=== PATIENT | female | born 1995 | race Caucasian/White ===

== ENCOUNTER 2016-10-23 13:58 | Emergency (ER) | payer OTHER ==
[2016-10-23 14:14] VITALS: BP 127/90; PULSE 98; TEMP 97.6; BMI 32.8
--- NOTE | 2016-10-23 16:27 | PDOC ---
History of Present Illness - General Chief Complaint: Allergic Reaction Stated Complaint: ALLERGIC REACTION Time Seen by Provider: 10/23/16 14:58 History Source: Patient Exam Limitations: No Limitations - History of Present Illness Initial Comments: 10/23/16 16:21 CC SORE THROAT, AND NASAL CONGESION Timing/Duration: reports: week Severity: reports: mild Possible Cause: Yes: chronic episodes. No: allergen exposure Associated Symptoms: reports: nasal congestion, nasal drainage, sore throat. denies: denies symptoms, cough, dizziness, facial pain, fever/chills, wheezing Past History - Past Medical History Allergies/Adverse Reactions: Allergies Allergy/AdvReac Type Severity Reaction Status Date / Time diphenhydramine Allergy Intermediate Verified 10/23/16 14:10 [Diphenhydramine] Home Medications: Ambulatory Orders No Home Medications 0 dose .ROUTE UTDICT 09/22/12 Asthma: Yes Suicide Attempt (Hx): No Other medical history: 12 WEEKS - Immunization History Immunization Up to Date: Yes - Psycho/Social/Smoking Cessation Hx Anxiety: Yes Suicidal Ideation: No Smoking Status: No Smoking History: Never smoked Number of Cigarettes Smoked Daily: 0 Drug/Substance Use Hx: No Substance Use Type: None Review of Systems - Review of Systems Constitutional: No: Chills, Fever, Malaise HEENTM: Yes: Nose Pain, Nose Congestion. No: Throat Pain Respiratory: Yes: Symptoms reported. No: Cough, Stridor, Wheezing Cardiac (ROS): No: Symptoms Reported ABD/GI: No: Symptoms Reported : No: Symptoms Reported Musculoskeletal: No: Symptoms Reported Integumentary: No: Symptoms Reported, Lumps Neurological: No: Symptoms reported *Physical Exam - Vital Signs Last Vital Signs Temp Pulse Resp BP Pulse Ox 97.6 F 98 H 19 127/90 97 10/23/16 14:10 10/23/16 14:10 10/23/16 14:10 10/23/16 14:10 10/23/16 14:10 - Physical Exam General Appearance: Yes: Appropriately Dressed HEENT: positive: Nasal Congestion, Rhinorrhea. negative: TMs Normal, Pharynx Normal, TM Bulging, TM Dull, TM Erythema Neck: positive: Supple, Lymphadenopathy (R), Lymphadenopathy (L). negative: Tender, Rigid Respiratory/Chest: positive: Chest Tender, Lungs Clear. negative: Rhonchi, Stridor, Wheezing ED Treatment Course - ADDITIONAL ORDERS Additional order review: 10/23/16 15:30 Group A Strep Rapid Antigen - Final Throat Medical Decision Making - Medical Decision Making 10/23/16 16:23 STREP= NEGATIVE; WILL SUGGEST CLARITIN 10MG DAILY WHICH IS SAVE DURING *DC/Admit/Observation/Transfer Diagnosis at time of Disposition: Allergic rhinitis Qualifiers: Allergic rhinitis seasonality: unspecified seasonality Allergic rhinitis trigger: unspecified Qualified Code(s): J30.9 - Allergic rhinitis, unspecified - Discharge Dispostion Disposition: HOME Condition at time of disposition: Stable Admit: No - Patient Instructions Additional Instructions: LOTS OF FLUIDS; GARGLE; CLARITIN NOT JANET; SEE LOCAL MD NEXT WEEK - Post Discharge Activity Work/School Note: Back to Work
== END 2016-10-23 16:37 | disposition home or self-care (01) ==
LOC: JERFT 13:58
DX: B30.9 Viral conjunctivitis, unspecified (principal); Z3A.12 12 weeks gestation of pregnancy
CPT/HCPCS: 87070; 87077; 87430; 99281-25

== ENCOUNTER 2017-03-17 18:49 | Emergency (ER) | payer OTHER ==
[2017-03-17 19:05] VITALS: BMI 34.0
--- NOTE | 2017-03-17 19:55 | PDOC ---
Attending Attestation - Resident Resident Name: Pau Wu - ED Attending Attestation I have performed the following: I have examined & evaluated the patient, The case was reviewed & discussed with the resident, I agree w/resident's findings & plan, Exceptions are as noted - HPI HPI: 03/17/17 20:00 Pt is 32 weeks c/o back pain. Pt denies dysuria. States she was evaluated at another hospital and told everything was fine. Pt denies any abdominal cramping or vaginal bleeding. Denies trauma - Physicial Exam PE: 03/17/17 19:59 *Physical Exam General Appearance: Yes: Appropriately Dressed. No: Apparent Distress, Intoxicated HEENT: positive: EOMI, YAQUELIN, Normal ENT Inspection, Normal Voice, TMs Normal, Pharynx Normal. negative: Pale Conjunctivae, Photophobia, Scleral Icterus (R), Scleral Icterus (L) Neck: positive: Trachea midline, Normal Thyroid, Supple. negative: Tender, Rigid, Carotid bruit, Stridor, Lymphadenopathy (R), Lymphadenopathy (L), Thyromegaly Respiratory/Chest: positive: Lungs Clear, Normal Breath Sounds. negative: Chest Tender, Respiratory Distress, Accessory Muscle Use, Labored Respiration, RES, Crackles, Rales, Rhonchi, Stridor, Wheezing, Dullness Cardiovascular: positive: Regular Rhythm, Regular Rate, S1, S2. negative: Edema , JVD, Murmur, Bradycardia, Tachycardia Vascular Pulses: Dorsalis-Pedis (R): 2+, Doralis-Pedis (L): 2+ Gastrointestinal/Abdominal: positive: Normal Bowel Sounds, gravid Soft. negative: Tender, O, Pulsatile Mass, Increased Bowel Sounds, Decreased BS, Distended, Guarding, Rebound, Hernia, Hepatomegaly, Spleenomegaly Lymphatic: negative: Adenopathy, Tenderness Musculoskeletal: positive: Normal Inspection. negative: CVA Tenderness, Decreased Range of Motion Extremity: positive: Normal Capillary Refill, Normal Inspection, Normal Range of Motion, Pelvis Stable. negative: Tender, Pedal Edema, Swelling, Erythema Integumentary: positive: Normal Color, Dry, Warm. negative: Cyanotic, Erythema , Jaundice, Rash Neurologic: positive: business intelligence manager II-XII NML intact, Fully Oriented, Alert, Normal Mood/ Affect, Motor Strength 5/5. negative: EOM Palsy, Facial Droop, Sensory Deficit
--- NOTE | 2017-03-17 20:04 | PDOC ---
History of Present Illness - General Chief Complaint: Pain Stated Complaint: BODY PAIN/32 WKS Time Seen by Provider: 03/17/17 19:28 History Source: Patient Exam Limitations: No Limitations - History of Present Illness Initial Comments: 03/17/17 20:20 CC: 3 day h/o Back Pain Patient is a 21 y.o. female at 32 weeks gestation with a PMH of Asthma and Major Depressive Disorder who presents to our facility today c/o back pain that radiates to her B/L thighs. Patient states that her pain began Tuesday morning when she woke up -- patient can't qualify the pain, but notes it is constant, and Tylenol (which she was prescribed by [facility] ED for a 03/14 visit for the same complaint) has not relieved the pain. Patient denies any dysuria or headache. Patient notes she has been recieving care at [facility] and her has been uneventful. Patient notes that she takes Depakote and Seroquel for her major depressive disorder and under the instruction of her financial planning assistant has been continuing both medications during her . Past History - Past Medical History Allergies/Adverse Reactions: Allergies Allergy/AdvReac Type Severity Reaction Status Date / Time diphenhydramine Allergy Intermediate Verified 03/17/17 18:59 [Diphenhydramine] Home Medications: Ambulatory Orders [id number]/Iron Fumarate/FA/Dss [ 19 Tablet] 1 tab PO DAILY 03/17/17 Asthma: Yes Psychiatric Problems: Yes (DEPRESSION) Suicide Attempt (Hx): No - Immunization History Immunization Up to Date: Yes - Psycho/Social/Smoking Cessation Hx Anxiety: Yes Suicidal Ideation: No Smoking Status: No Smoking History: Never smoked Number of Cigarettes Smoked Daily: 0 Drug/Substance Use Hx: No Substance Use Type: None Review of Systems - Review of Systems Constitutional: Yes: Malaise. No: Chills, Diaphoresis, Fever HEENTM: No: Blurred Vision, Double Vision, Tinnitus, Hearing Loss, Throat Pain Respiratory: No: Cough, Orthopnea, Shortness of Breath, Wheezing Cardiac (ROS): No: Chest Pain, Edema, Lightheadedness, Palpitations, Syncope ABD/GI: No: Abdominal Distended, Constipated, Diarrhea, Nausea : No: Burning, Dysuria Musculoskeletal: Yes: Back Pain Integumentary: No: Bruising, Pruritus, Sweating Neurological: No: Headache, Numbness, Seizure, Ataxia Psychiatric: No: Anxiety, Depression *Physical Exam - Vital Signs Last Vital Signs Temp Pulse Resp BP Pulse Ox 97.9 F 133 H 19 116/78 98 03/17/17 18:59 03/17/17 18:59 03/17/17 18:59 03/17/17 18:59 03/17/17 18:59 - Physical Exam General Appearance: Yes: Nourished, Appropriately Dressed HEENT: positive: EOMI, YAQUELIN Gastrointestinal/Abdominal: positive: Normal Bowel Sounds, Soft Musculoskeletal: positive: Normal Inspection, Other (No CVA tenderness; Antalgic gait) Extremity: positive: Normal Capillary Refill, Other (2+ B/L hand edema) Integumentary: positive: Normal Color, Dry, Warm Neurologic: positive: hog ringer II-XII NML intact, Fully Oriented, Alert Deep Tendon Reflexes: Ankle (L): 2+, Ankle (R): 2+ ED Treatment Course - LABORATORY CBC & Chemistry Diagram: 03/17/17 21:00 03/17/17 21:00 - RADIOLOGY Radiology Studies Ordered: Category Date Time Status SPINE-LUMBAR SACRAL [RAD] Stat Radiology 03/17/17 20:02 Ordered SPINE-THORACIC [RAD] Stat Radiology 03/17/17 20:02 Ordered TRANSVAGINAL US PREG [US] Stat Ultrasound 03/17/17 20:01 Ordered Medical Decision Making - Medical Decision Making 03/17/17 22:28 Patient is a 21 y.o. female @ 32 weeks gestation c/o generalized back pain initial differential diagnosis includes UTI vs. related malaise vs. preeclampsia (less likely). Patient's VS were within normal limits and UA was significant for 2+ proteinuria, nitrite negative, leukocyte esterase negative. ultrasound showed a live single intrauterine noted at 30 weeks and 4 day gestation. As patient was counseled on risks of radiation exposure and agreed to imagining, lateral spinal X-ray was obtained and was negative for any subluxation or fracture. Patient was transferred to Labor and Delivery for further evaluation. *DC/Admit/Observation/Transfer Diagnosis at time of Disposition: Abdominal pain in - Discharge Dispostion Disposition: HOME Condition at time of disposition: Stable - Referrals Referrals: Kimberly Chapa [Primary Care Provider] - - Patient Instructions Additional Instructions: DISCHARGE TO HOME REST IN BED AT HOME MAKE AN APPOINTMENT TO SEE YOUR DOCTOR AT [facility] TOMORROW DIET TOLERATED DRINK PLENTY OF FLUIDS CONTINUE ALL HOME MEDICATIONS DIRECTED RETURN TO HOSPITAL: CONTRACTIONS EVERY 3 TO 5 MINUTES DECREASED MOVEMENT HEAVY VAGINAL BLEEDING RUPTURE OF MEMBRANES OR " WATER BREAKS" - Attestations Physician Attestion: 03/18/17 06:35 I, Dr. Pau Wu, attest that this document has been prepared under my direction and personally reviewed by me in its entirety. I further attest, that it accurately reflects all work, treatment, procedures and medical decision -making performed by me.
[2017-03-17 21:39] LABS: MCH 28.2 pg (25.7-33.7); MCHC 33.4 g/dl (32.0-36.0); MEAN CELL VOLUME 84.5 fl (80-96); MEAN PLT VOLUME 10.4 fl (7.5-11.1); PLATELET COUNT 159 K/MM3 (134-434); RDW 14.1 % (11.6-15.6); WHITE BLOOD COUNT 10.5 K/mm3 (4.0-10.0)
[2017-03-17 21:40] LABS: URINE APPEARANCE SLCLOUDY; URINE BILIRUBIN NEGATIVE (NEGATIVE); URINE BLOOD NEGATIVE (NEGATIVE); URINE COLOR AMBER; URINE GLUCOSE (UA) NEGATIVE (NEGATIVE); URINE KETONE TRACE (NEGATIVE); URINE LEUK ESTERASE NEGATIVE (NEGATIVE); URINE NITRITE NEGATIVE (NEGATIVE)
[2017-03-17 21:44] LABS: URINE PROTEIN 2+ (NEGATIVE)
[2017-03-17 21:47] LABS: GRANULAR CASTS 24 /lpf; URINE BACTERIA RARE /hpf (NONE SEEN); URINE HYALINE CAST 4 /lpf; URINE MUCUS FEW; URINE RBC 3 /hpf (0-3); URINE WBC 6 /hpf (3-5)
[2017-03-17 22:01] LABS: ANION GAP 11 (8-16); CALCIUM 8.8 mg/dL (8.5-10.1); CO2 21 mmol/L (21-32); CREATININE 0.5 mg/dL (0.55-1.02); GLUCOSE,RANDOM 105 mg/dL (74-106)
[2017-03-17] MEDS ORDERED: DEXTROSE 5%-LACTATED RINGERS 1,000 ML IV ONE (23:45)
[2017-03-18 00:13] VITALS: BP 138/60; PULSE 101; TEMP 97.8
== END 2017-03-18 01:02 | disposition home or self-care (01) ==
LOC: JER 18:49
DX: O26.893 Other specified pregnancy related conditions, third trimester (principal); R10.30 Lower abdominal pain, unspecified; M54.5 Low back pain; O99.343 Other mental disorders complicating pregnancy, third trimester; F32.9 Major depressive disorder, single episode, unspecified; Z3A.30 30 weeks gestation of pregnancy
CPT/HCPCS: 36415; 72020-TC; 76801-TC; 80048; 81003; 81015; 85027; 87086; 99282-25